=== PATIENT | female | born 1955 | race Caucasian/White ===

== ENCOUNTER 2016-05-25 02:19 | Observation (INO) | payer OTHER ==
[~2016-05-25] VITALS: Ht 152.4 cm; Wt 83.7 kg
[2016-05-25 03:24] VITALS: PULSE 68
--- NOTE | 2016-05-25 03:30 | NUR ---
Pt Admission to [facility] Room 2002 Pt arrived to room 2002 approximately 0330 [address] a [address]urney from [facility]. Pt's VSS and pt was alert and oriented to self with a left AC IV that had NS and heparin running through it. Heparin was running at 870Units/hr. Pt denied chest pain upon arrival and was able to walk with a steady gait independently from the gurney to the bed.
[2016-05-25] MEDS ORDERED: 0.9% Sodium Chloride 1,000 ML IV SCH (03:42)
[2016-05-25] MEDS ORDERED: Alum-Mag Hydrox-Simeth 30 mL Suspension PO PRN (03:45)
[2016-05-25] MEDS ORDERED: Ondansetron 2 mg/mL 2 mL Inj IVPUSH PRN (03:45)
[2016-05-25] MEDS ORDERED: Atropine 1 mg/10 mL (Code) Syringe IVPUSH PRN (03:45)
[2016-05-25] MEDS ORDERED: Polyethylene Glycol (PEG) 17 Gm Powder PO PRN (03:45)
[2016-05-25] MEDS ORDERED: Senna-Docusate 8.6-50 mg Tablet PO PRN (03:45)
[2016-05-25] MEDS ORDERED: CHOL500011 PO (03:58)
[2016-05-25] MEDS ORDERED: CITA20TA11 PO (03:58)
[2016-05-25] MEDS ORDERED: Heparin 5,000 Unit/mL Inj IVPUSH PRN (04:00)
[2016-05-25] MEDS ORDERED: Heparin 25K Unit/500mL 0.45 NS 25,000 UNIT in IV Premix 1 EACH IV SCH (04:00)
--- NOTE | 2016-05-25 04:31 | PCM.HPMED ---
Subjective Date of Service May 25, 2016 Primary Provider: Admitting Physician: Daniel Shetty MD Primary Care Physician: Sandrine Attending Physician: Daniel Shetty MD Admit Status: Direct Admit (transfer from [facility]), Remote Telemetry Chief Complaint: Chest pain, nausea, and vomiting History of Present Illness: Very pleasant 60yo woman with history of memory impairment, dementia, depression presents to [facility] with a direct transfer from [facility] with probable NSTEMI with rising troponins. She was feeling her normal self, confirmed by of 35 years, and this evening developed some chest and abdominal pain, "like matches burning under her breastbone", and then nausea and finally vomiting at 7 :30pm at which time the couple went to [facility]. Her troponins there amanda from 0.2 to 0.9, EKG was essentially normal without ST elevations, and patient was placed on a cardiac heparin protocol and transferred here. She arrived here in no distress, no chest pain, no nausea. Review of Systems: 14 point ROS negative except as noted above in HPI. Allergies Coded Allergies: No Known Allergies (Verified Allergy, Unknown, 08/12/14) Home Medications Citalopram 20mg PO daily Rivastigmine, dose unknown H Dementia Depression Surgical History Breast Reduction Dominick Quezada Family History Mother of complications from Alzheimer's Disease. Father had CAD, at age 91. Social History Hx Alcohol Use: No Hx Substance Use: No Hx Tobacco Use: No Smoking Status: Never Smoker Living Arrangement: with Family Exam Vital Signs Vital Sign - Last Date Time Temp Pulse Resp B/P Pulse Ox O2 Delivery O2 Flow Rate FiO2 05/25/16 03:24 68 Exam General: Alert, Oriented X3, Cooperative but easily confused and flustered, No Acute Distress, leaves all questions to Head: Normocephalic, atraumatic. External ears normal. Eyes: PERRLA, EOMI. Anicteric sclerae. Mouth: Mouth Normal, Mucous Membranes Moist/Roff Neck: Neck supple with full range of motion. Chest & Lungs: Clear to auscultation bilaterally with no crackles, wheezes, or rhonchi. Cardiovascular: Regular Rate/Rhythm, Normal S1, Normal S2, No Murmurs/Rubs/ Gallops Abdomen: Non-tender, Non-distended, No masses, Normoactive bowel tones, Soft Musculoskeletal: Normal Range of Motion Extremities: No cyanosis/clubbing/edema bilaterally Lab and Diagnostics X-Rays, CTs and MRIs Report of normal CXR from [facility] last night 12-lead ECG Report of sinus rhythm with rate of 53, no ST elevations. Assessment & Plan Pleasantly confused 60yo woman with little medical history presenting to our hospital from a direct transfer from [facility] for reported chest pain, nausea, vomiting, and rising troponins. Patient at our facility is comfortable, without pain or nausea. 1. Chest pain likely secondary to NSTEMI given rising troponins and basically normal EKG -repeat EKG ordered -pt on telemetry -pt on Cardiac Heparin protocol drip -Cardiology consult this morning ordered, not called in. -holding patient NPO as cardiology may plan a test or procedure requiring it -NS 80ml/hr IV for maintenance of volume status -Medications per protocol ordered: ASA 81mg daily, Morphine IV push PRN for pain , Nitrostat available PRN 2. Abdominal pain possibly the source of the chest pain, secondary to GERD is also possible, but doesn't explain the rise in troponin. -Maalox available PRN 3. Depression, hold Citalopram while NPO 4. Dementia, hold Rivastigmine while NPO, dose is unknown to patient PRN medications for nausea and constipation made available Pain Evaluation: Adequate Pain Control GI Prophylaxis: Other VTE Prophylaxis Indicated: Meets Criteria for Anticoag Therapy (cardiac heparin drip protocol instituted) Resuscitation Status: CPR: Attempt Resuscitation Attending Statement The patient was seen and examined together with Dr. Gibson on 05/25 and I agree with the history, exam and plan as outlined in the note above. Gomez Gibson DO May 25, 2016 04:31 Daniel Shetty MD May 25, 2016 05:35
[2016-05-25 04:51] LABS: BASOPHILS % (AUTO) 0.3 % (0-3); EOSINOPHILS % (AUTO) 1.5 % (0-5); MONOCYTES % (AUTO) 7.1 % (4-12); Mean Corpuscular Hemoglobin 29.5 pg (27.0-35.0); Mean Corpuscular Volume 91.1 fL (81-100); NEUTROPHILS % (AUTO) 64.5 % (40-74); Platelet Count 159 bil/L (150-400)
[2016-05-25 05:25] LABS: INR 0.97 ratio
[2016-05-25 05:44] LABS: Magnesium 2.1 mg/dL (1.6-2.6); TROPONIN T 0.01 ug/L (0.0-0.011)
[2016-05-25 07:20] VITALS: BP 133/80; PULSE 70; RESP 16; O2SAT 98
[2016-05-25 07:25] VITALS: PULSE 70
--- NOTE | 2016-05-25 08:12 | PCM.PNMED ---
Subjective Date of Service May 25, 2016 Subjective She is doing well. No further chest pain nausea vomiting or diarrhea. No palpitations. She has no cardiac history. She has no clear-cut history of exertional chest pain. No history of hypertension or hyperlipidemia. Her morning troponin was normal. No overnight events Exam Vital Signs Vital Sign - Last Date Time Temp Pulse Resp B/P Pulse Ox O2 Delivery O2 Flow Rate FiO2 05/25/16 07:20 36.6 70 16 133/80 98 Room Air Exam Alert and oriented 3, no distress. Fluent speech Anicteric sclera. Lungs are clear with normal rate and effort Heart is regular without murmur gallop or rub Abdomen soft nontender, flat Extremities are free of edema. Skin is free of rash or lesions. IVs and Medications Medications Reviewed: Medications were reviewed in detail Lab and Diagnostics Result Diagram: 05/25/1642905/25/16429 X-Rays, CTs and MRIs Report of normal CXR from [facility] last night 12-lead ECG Report of sinus rhythm with rate of 53, no ST elevations. Assessment & Plan Pleasantly confused 60yo woman with little medical history presenting to our hospital from a direct transfer from [facility] for reported chest pain, nausea, vomiting, and rising troponins. Patient at our facility is comfortable, without pain or nausea. 1. Chest pain, resolved. POA. No ECG changes and a negative troponin this morning. No cardiac history. The plan is to stop heparin and pursue a Lexiscan this morning. 2. Abdominal pain possibly the source of the chest pain, POA. This is now resolved. We will follow clinically. 3. Depression, hold Citalopram while NPO 4. Dementia, hold Rivastigmine while NPO, dose is unknown to patient PRN medications for nausea and constipation made available GI Prophylaxis: Other Resuscitation Status: CPR: Attempt Resuscitation Mg Samaniego MD May 25, 2016 08:12
--- NOTE | 2016-05-25 08:14 | PCM.ADCARE ---
Advance Care Planning Note Purpose of Encounter: To delineate resuscitation wishes and level of care. Parties in Attendance: Patient and her Decisional Capacity: She is demented and has advanced cognitive difficulties. Her is her power of insurance defense attorney for healthcare decisions and is competent for this discussion. Subjective: She is comfortable, denies any chest pain or dyspnea. Objective: Lungs are clear with normal effort Heart is regular She is alert. Goals of Care Determinations: 1. Full resuscitation. This included CPR, defibrillation and endotracheal intubation as needed. 2. Reasonable level of medical care. She wants to have a long life. The colon was to perform medical testing and procedures as necessary but to avoid persistent invasive procedures as much as possible for comfort. Plan: As above she is for resuscitation. Today we will choose a Lexiscan as a noninvasive alternative to a coronary angiogram. CODE STATUS: Full resuscitation without modification Time Spent Adv.Care Plannin minutes Adv. Care Plan Documenation: As above Mg Samaniego MD May 25, 2016 08:14
[2016-05-25] MEDS ORDERED: Sodium Chloride LOK Flush 10 mL Syringe IVFLUSH SCH (08:30)
--- NOTE | 2016-05-25 10:23 | DRSVH ---
[facility] [address] [place] [address] Echocardiogram Report Name: HALEY STEVENS JStudy Date : 05/25/2016 Height: 60 in Hospital Exam Location: [facility] Weight: 185 lb Gender: Female BSA: 1.8 m2 : 1955 Age: 60 yrs BP: 133/80 mmHg Reason For Study: CHEST PAIN, ABDOMINAL PAIN Ordering Physician: HOSPITALIST [facility] Performed By: Betzy Vicente Referring Physician: DR. Darryl WEBER, DR. Miguel SERRATO Interpretation Summary The left ventricle is normal in size. The ejection fraction is estimated to be 65-70%. The right ventricle is normal in size and function. No significant valvular pathology seen. Procedure: A two-dimensional transthoracic echocardiogram with color flow and Doppler was performed. The study quality was technically difficult. There is no prior echocardiogram noted for this patient. The patient was in normal sinus rhythm during the exam. Left Ventricle: The left ventricle is normal in size. Left ventricular wall thickness is mildly increased. A false chord is noted (normal variant). There is no thrombus. Left ventricular systolic function is normal. The ejection fraction is estimated to be 65-70%. There are no focal wall motion abnormalities. Spectral Doppler of the mitral valve shows a normal E/A wave ratio. Right Ventricle: The right ventricle is normal in size and function. Atria: Both atria are normal in size. A prominent eustachian valve is noted. There is no Doppler evidence for an atrial septal defect. Mitral Valve: There is mild mitral annular calcification. There is trace mitral regurgitation. Aortic Valve: The aortic valve is trileaflet. The aortic valve opens well. The aortic valve is slightly calcified. There is no aortic valve stenosis. No aortic regurgitation is present. Tricuspid Valve: The tricuspid valve is not well visualized, but is grossly normal. The right ventricular systolic pressure is estimated at 20 mmHg assuming a right atrial pressure of 3 mm Hg. There is trace tricuspid regurgitation. Pulmonic Valve: The pulmonic valve is not well visualized. There is no pulmonic valvular regurgitation. Great Vessels: The aortic root is normal size. The dimensions of the ascending aorta are normal. The pulmonary is not well visualized. The IVC is of normal diameter and collapses greater than 50% with a sniff. This suggests a low right atrial pressure of 3 mm Hg. Pericardium/ Pleura There is no pericardial effusion. There is an anterior echo-free space consistent with a fat pad. There is no pleural effusion. MMode/2D Measurements & Calculations LVIDd: 3.8 cm LA dimension: 3.1 cm RA long axis LVOT diam: 2.0 cm LVIDs: 2.2 cm AoV Opening FS: 41.0 % LA A2 area: 18.8 cm RA area IVSd: 1.1 cm LA A4 area: 17.1 cm Ao root diam LVPWd: 1.1 cm LA length (vol) : 9.6 cm RA vol asc Aorta Diam LA vol: 45.9 ml : 19.0 ml LA vol index RA Ao Arch Diam (Prox : 10.5 mm/ Trans): 2.0 cm RVDd major IVC diam: 1.8 cm : 5.5 cm LV pandey. diameter/BSA LV sys. diameter/BSA RVD2 (mid) (cm/m^2): 2.1 (cm/m^2): 1.2 : 2.6 cm Doppler Measurements & Calculations Ao V2 max MV E max vern MV E/A: 1.2 TR max vern : 137.2 cm/sec : 98.1 cm/sec Med Peak E' Vern : 202.9 cm/sec Ao max PG MV A max vern TR max PG : 7.5 mmHg : 82.6 cm/sec E/E' med: 8.9 : 16.5 mmHg Ao mean PG MV P1/2t: 64.6 msec Lat Peak E' Vern PA V2 max : 68.4 cm/sec LVOT Max Vern E/E' lat: 12.1 PA mean PG : 93.3 cm/sec E/e' average: 10.5 MOIZ(I,D): 2.0 cm Pulm A Revs Dur PA Accel Time sev ratio : 0.10 sec MV A dur: 0.14 sec MV dec time MV P1/2t max vern Ao V2 mean LV V1 max PG : 0.22 sec : 102.0 cm/sec Ao V2 VTI: 33.9 cm LV V1 VTI MVA(P1/2t): 3.4 cm2 : 21.6 cm MOIZ(V,D): 2.1 cm2 PA V2 mean MOIZ indexed to BSA Pulm A Revs Dur - MV A : 51.9 cm/sec (cm^2/m^2): 1.1 Dur: -0.01 msec Reading Physician:ERIC
[2016-05-25 10:42] VITALS: PULSE 62
[2016-05-25 11:24] VITALS: BP 111/63; PULSE 61; RESP 16; O2SAT 98
--- NOTE | 2016-05-25 11:25 | NUR ---
Case Management: Clarification of patient status: observation per MD order on 05/25/16. Zeus Luna RN
--- NOTE | 2016-05-25 11:30 | CONS ---
[address] [address] CONSULTATION REPORT PATIENT: HALEY STEVENS : 1955 MR#: [id number] ADMIT: 05/25/2016 JOB ID: [id number] DATE OF SERVICE: 05/25/2016 CHIEF COMPLAINT: Chest pain. HISTORY OF PRESENT ILLNESS: The patient is an unfortunate, 60-year-old woman, with early onset dementia. She is transferred from [facility] for elevated troponins and chest discomfort. The history is mostly obtained from her , who is at the bedside. Apparently, they had a nice evening yesterday at his sister's house. They played cards and had a nice dinner. After the events, she walked to the truck and developed severe burning chest discomfort. It was nonradiating. It lasted anywhere from 30 minutes to an hour, and resolved on its own. The patient is not able to provide any history due to her cognitive impairment. She was brought to [facility]. Her initial troponin-I was 0.02 as of 8 p.m. yesterday evening. This morning at 1 a.m., it was 0.09, and Cardiology was consulted to assist with management. says that chest discomfort was associated with nausea and abdominal pain. PAST MEDICAL HISTORY: 1. Early onset dementia. says this runs in her family, and her mom has the same problem. 2. Depression. SURGICAL HISTORY: Tummy tuck and breast reduction. FAMILY HISTORY: Her mom had Alzheimer's disease, and her father had heart disease, at age 91. SOCIAL HISTORY: The patient is a lifetime nonsmoker. She lives in [place] with her , who is accompanying her in the hospital today. REVIEW OF SYSTEMS: Unable to obtain due to the patient's cognitive impairment. CURRENT MEDICATIONS: In the hospital: Aspirin 81 mg daily. Home medications are citalopram and rivastigmine patch. Apparently, says it is very difficult to put the patch on and she does not like it, so most of the time, she is actually not using it. PHYSICAL EXAM: Overweight woman, very pleasant, somewhat confused, in no apparent distress. Eyes: No scleral icterus. Heart: Normal S1, S2. No murmurs. Lungs: Clear to auscultation anteriorly. Abdomen: Soft. Positive bowel sounds. No hepatosplenomegaly. Extremities: Warm, well perfused. No clubbing, cyanosis, or edema. Skin: No rashes or lesions. EKG obtained at 7 a.m. at [facility] showed sinus bradycardia, 56 beats per minute. Normal axis and left ventricular hypertrophy. No significant ST-segment changes. LABORATORIES: Reviewed. Labs within normal limits. Creatinine 1.1. Transaminases are normal. CK is 106. Lipase is normal at 266. Troponin-I was 0.08, amanda up to 0.09, and then came back down. TSH is normal. CBC is normal. Chest x-ray showed no active cardiopulmonary process. Most recent lipids obtained at 4 o'clock this morning showed total cholesterol 249, triglycerides 80, HDL 53, LDL 180. ASSESSMENT AND PLAN: In summary, this is a 60-year-old woman with newly diagnosed hyperlipidemia and family history of coronary artery disease. She has somewhat atypical chest pain in that it was burning, not associated with ST-segment changes. She does not recall the specifics of the episode. Her management is complicated by dementia. Apparently, she has difficulty even with basic medication such as rivastigmine for her dementia, and it is difficult for the to convince her to take it. So from that standpoint, she is not a great candidate for invasive therapy because of compliance issues. We had a irma discussion about her prognosis, which is largely informed by cognitive impairment rather than cardiovascular disease. The patient's says he wants her to remain FULL CODE. He wants us to try to resuscitate her if she does code, but he did not really think she would tolerate stress test nor that she would tolerate cardiac catheterization if it were indicated. At this point, her became quite tearful. He is going through a lot emotionally with her cognitive impairment. I recommend medical management for this patient. In particular, I recommend initiating antianginal therapy with amlodipine 2.5 mg daily to see if that helps her with what could have been angina, but it is difficult to ascertain. Additionally, I recommend statin therapy to reduce the risk of vascular dementia. Of course, I understand that it is a little bit controversial, and my 1st preference would be to start antianginal therapy and see if that helps, and then she can follow up with me in the clinic. At that time, we can discuss initiating statin therapy or further workup if they choose. I am by no means certain that her symptom was a reflection of cardiovascular disease. Thank you very much for the opportunity to evaluate this delightful patient. EZEKIEL
--- NOTE | 2016-05-25 14:13 | PCM.DIMED ---
Discharge Instructions Date of Service May 25, 2016 Dates of Hospitalization May 25, 2016 at 03:01 Discharge Diagnosis Discharge Diagnosis 1. Chest pain, unclear cause. Doubt heart pain.. 2. Abdominal pain and vomiting, resolved. 3. Depression. 4. Dementia. Diet Heart Healthy Activity No restrictions Call your provider Shortness of breath, Chest pain Patient Instructions Follow-up with PCP in: 1 week Provider: Debo Lindo MD Follow-up in: 6 weeks Mg Samaniego MD May 25, 2016 14:13
[2016-05-25] MEDS ORDERED: AMLO2.5T PO (14:14)
--- NOTE | 2016-05-25 14:52 | NUR ---
Social Work Note: Screen Note/Discharge Data& Assessment: EMR reviewed. Per pt is medically ready to discharge. SW met with pt and pt family at bedside to confirm discharge plan and assess for any unmet needs, SW role explained. Chantale Silverio is a 60 year old female under observation for CP, abdominal pain, and possible NON STEMi. Pt has [employer] insurance coverage and sees Maegan Shepherd DO for primary care. Pt lives in [place] with her spouse and is independent at baseline. Per pt is medically improved and clear to discharge. Pt is ambulating in her room independently. Pt transporting her home today. Pt and pt family denies any other needs. No other discharge needs identified. All updated and agreeable to plan. Plan: Per pt is medically ready for discharge home via POV. Pt and pt family denies any other needs. No other discharge needs identified. All updated and agreeable to plan. JAIME Quesada
--- NOTE | 2016-05-25 15:20 | NUR ---
Discharge note Patient a/o to self, c/o midsternal chest burning and nausea after eating crackers, Zofran given with good effect. Patient took lunch without any further c/o nausea. Patient oob amb in room steady gait. VSS, tele SR. IV SL and tele removed intact. Patient given discharge instructions, medication reconciliation, info on diagnosis, new meds and new prescriptions. All questions answered. Patient taken to the car via wheel chair with all belongings and discharged home with .
--- NOTE | 2016-05-28 08:24 | PCM.DC.MED ---
Discharge Summary Date of Service May 25, 2016 Dates of Hospitalization Date of Hospital Admission May 25, 2016 at 03:01 Date of Discharge: May 25, 2016 Providers: Admitting Physician: Daniel Shetty MD Primary Care Physician: Maegan Shepherd DO Attending Physician: Daniel Shetty MD Diagnosis at Time of Discharge Diagnosis at Time of Discharge 1. Chest pain, unclear cause. Doubt heart pain.. 2. Abdominal pain and vomiting, resolved. 3. Depression. 4. Dementia. Consultations Dr Bunn, Palliative care Procedures XRay, CTs & MRIs Report of normal CXR from [facility] last night ECG 12 Lead Report of sinus rhythm with rate of 53, no ST elevations. Invasive Procedures None Brief History Very pleasant 60yo woman with history of memory impairment, dementia, depression presents to [facility] with a direct transfer from [facility] with probable NSTEMI with rising troponins. She was feeling her normal self, confirmed by of 35 years, and this evening developed some chest and abdominal pain, "like matches burning under her breastbone", and then nausea and finally vomiting at 7 :30pm at which time the couple went to [facility]. Her troponins there amanda from 0.2 to 0.9, EKG was essentially normal without ST elevations, and patient was placed on a cardiac heparin protocol and transferred here. She arrived here in no distress, no chest pain, no nausea. Hospital Course Pleasantly confused 60yo woman with little medical history presenting to our hospital from a direct transfer from [facility] for reported chest pain, nausea, vomiting, and rising troponins. Patient at our facility is comfortable, without pain or nausea. 1. Chest pain, resolved. POA. No ECG changes and a negative troponin this morning. No cardiac history. The plan is to stop heparin and pursue a Lexiscan this morning. 2. Abdominal pain possibly the source of the chest pain, POA. This is now resolved. We will follow clinically. 3. Depression, hold Citalopram while NPO 4. Dementia, hold Rivastigmine while NPO, dose is unknown to patient PRN medications for nausea and constipation made available Exam Vital Signs (Last) Date Time Temp Pulse Resp B/P Pulse Ox O2 Delivery O2 Flow Rate FiO2 05/25/16 11:24 36.7 61 16 111/63 98 Room Air Exam Patient seen and examined on the day of discharge Test 05/25/16 04:30 05/25/16 10:15 White Blood Count 6.5th/mm3 (3.8-10.1) Red Blood Count 4.14mil/mm3 (3.90-5.20) Hemoglobin 12.2g/dL (12.0-15.6) Hematocrit 37.7% (35.0-46.0) Mean Corpuscular Volume 91.1fL (81-100) Mean Corpuscular Hemoglobin 29.5pg (27.0-35.0) Mean Corpuscular Hemoglobin Concent 32.4% (32.0-37.0) Red Cell Distribution Width 13.5% (12.3-15.4) Platelet Count 159bil/L (150-400) Neutrophils (%) (Auto) 64.5% (40-74) Lymphocytes (%) (Auto) 26.4% (14-46) Monocytes (%) (Auto) 7.1% (4-12) Eosinophils (%) (Auto) 1.5% (0-5) Basophils (%) (Auto) 0.3% (0-3) Prothrombin Time 10.4sec (8.1-12.5) Prothromb Time International Ratio 0.97ratio Activated Partial Thromboplast Time 83.9sec (22.8-33.0) Sodium Level 141mEq/L (134-144) Potassium Level 4.3mEq/L (3.5-5.2) Chloride Level 106mEq/L (97-108) Carbon Dioxide Level 23mmol/L (18-29) Blood Urea Nitrogen 8mg/dL (8-27) Creatinine 0.89mg/dL (0.57-1.00) Estimat Glomerular Filtration Rate 92mL/min (>59) Glucose Level 103mg/dL (60-99) Hemoglobin A1c 5.7% (4.8-5.6) Calcium Level 8.4mg/dL (8.5-10.1) Magnesium Level 2.1mg/dL (1.6-2.6) Triglycerides Level 80mg/dL (0-149) Cholesterol Level 249mg/dL (100-199) LDL Cholesterol, Calculated 180.000mg/dL (0-99) VLDL Cholesterol 16.000mg/dL HDL Cholesterol 53mg/dL (>39) Cholesterol/HDL Ratio 4.70 (0.0-4.4) Thyroid Stimulating Hormone (TSH) 3.360uIU/mL (0.450-4.500) Troponin T 0.010ug/L (0.0-0.011) Discharge Medications Discharge Medications Amlodipine (Amlodipine) 2.5 Mg Tablet 2.5 MG PO DAILY Prescribed by: MG LAMB MD Citalopram (Citalopram) 20 Mg Tablet 20 MG PO DAILY (Reported) Miscellaneous Medications Cholecalciferol (Vitamin D3) (Vitamin D3) 5,000 Unit Tablet 5,000 UNIT PO ( Reported) Followup Plan Disposition: Home Discharge Diet: Heart Healthy Discharge Activity: No restrictions Follow-up with PCP in: 1 week Provider: Debo Lindo MD Follow-up in: 6 weeks Time spent 35 minutes Mg Lamb MD May 28, 2016 08:24
== END 2016-05-25 15:20 | disposition home or self-care (01) ==
LOC: INTOOBSV 03:01 → PCC 03:01
PROVIDERS: ADMIT Hospitalist; ATTEND Hospitalist
DX: R07.9 Chest pain, unspecified (principal); R79.89 Other specified abnormal findings of blood chemistry; R10.9 Unspecified abdominal pain; R11.10 Vomiting, unspecified; F32.9 Major depressive disorder, single episode, unspecified; F03.90 Unspecified dementia, unspecified severity, without behavioral disturbance, psychotic disturbance, mood disturbance, and anxiety
CPT/HCPCS: 36415; 80048; 80061; 83036; 83735; 84443; 84484; 85025; 85610; 85730; 93005; 96374; C8929; G0378; G0379; J2405; J7030